=== PATIENT | female | born 1975 | race Caucasian/White ===

== ENCOUNTER 2020-09-25 10:06 | Inpatient (IN) ==
[2020-09-25 12:04] LABS: Basophils % 0.2 % (0.0-0.8); Eosinophils % 0.2 % (0.00-10.9); Hematocrit 37.7 VOL% (35.7-47.0); Hemoglobin 12.5 GM/DL (12.0-16.0); Immature Granulocytes % 0.4 %; Immature Granulocytes Absolute 0.02 #; Lymphocytes # 0.9 10*3/uL (1.4-4.0); Lymphocytes % 18.1 % (21.3-54.2); Mean Corpuscular HGB Conc 33.2 GM/DL (32-36); Mean Corpuscular Volume 93.5 FL (87-102); Monocytes % 5.9 % (1.7-12.7); Neutrophils % 75.2 % (38.7-73.9); Platelet Count 266 T/CUMM (130-400); Red Blood Count 4.03 MC/CUMM (3.8-5.5); Red Cell Distribution Width 12.9 % (9.3-17.3); White Blood Count 4.9 T/CUMM (4-12)
[2020-09-25] MEDS ORDERED: ONDANSETRON 4 MG/2 ML VIAL IV PRN (12:23)
[2020-09-25] MEDS ORDERED: GLUCAGON 1 MG VIAL IM PRN (12:23)
[2020-09-25] MEDS ORDERED: DEXTROSE 50% 25 GM/50 ML VIAL IV PRN (12:23)
[2020-09-25 12:26] LABS: Albumin 3.4 G/DL (3.4-5.0); Bilirubin,Total 0.6 MG/DL (0.20-1.00); Calcium 8.6 MG/DL (8.5-10.1); Ferritin 557.3 ng/ml (8-252); Osmolality,Calculated 277.5 MOS/KG (273-304); Potassium 4.1 MMOL/L (3.5-5.1); Total Protein 6.9 G/DL (6.4-8.2)
[2020-09-25 12:57] LABS: Lymphocytes 22 % (20-55); Segmented Neutrophils 70 % (50-85); Total Cells Counted 100
[2020-09-25 12:58] LABS: Platelet Estimate Adequate
[2020-09-25] MEDS ORDERED: REMDESIVIR 200 MG in SODIUM CHLORIDE 0.9% 210 ML IV ONE (14:00)
[2020-09-25] MEDS: SODIUM CHLORIDE 0.45% 1,000 ML IV SCH (18:54)
[2020-09-25] MEDS: CETIRIZINE 10 MG TABLET PO SCH (18:56)
[2020-09-25] MEDS: AZITHROMYCIN 250 MG TABLET PO SCH (18:56)
[2020-09-25] MEDS: FAMOTIDINE 20 MG TABLET PO SCH (21:56)
[2020-09-25] MEDS: ASCORBIC ACID 500 MG TABLET PO SCH (21:56)
[2020-09-25] MEDS: guaiFENesin/CODEINE 5 ML LIQUID PO PRN (21:56)
[2020-09-25] MEDS: BUDESONIDE/FORMOTEROL 160-4.5 INHALER 6 GM INH SCH (21:56)
[2020-09-25] MEDS: RIVAROXABAN 10 MG TABLET PO SCH (21:56)
[2020-09-25] MEDS: ACETAMINOPHEN 325 MG TABLET PO PRN (22:03)
[2020-09-26] MEDS: guaiFENesin/CODEINE 5 ML LIQUID PO PRN ×3 (03:20→22:17)
[2020-09-26] MEDS: SODIUM CHLORIDE 0.45% 1,000 ML IV SCH ×2 (05:28→22:19)
[2020-09-26 07:10] LABS: Basophils % 0.2 % (0.0-0.8); Eosinophils % 0.4 % (0.00-10.9); Hematocrit 32.6 VOL% (35.7-47.0); Hemoglobin 10.9 GM/DL (12.0-16.0); Immature Granulocytes % 0.7 %; Immature Granulocytes Absolute 0.03 #; Lymphocytes # 0.8 10*3/uL (1.4-4.0); Lymphocytes % 17.3 % (21.3-54.2); Mean Corpuscular HGB Conc 33.4 GM/DL (32-36); Mean Corpuscular Volume 94.5 FL (87-102); Mean Platelet Volume 10.1 FL (9.6-12.0); Monocytes % 7.6 % (1.7-12.7); Neutrophils % 73.8 % (38.7-73.9); Platelet Count 268 T/CUMM (130-400); Red Blood Count 3.45 MC/CUMM (3.8-5.5); White Blood Count 4.5 T/CUMM (4-12)
[2020-09-26 07:11] LABS: Albumin 2.6 G/DL (3.4-5.0); Bilirubin,Direct 0.14 MG/DL (0.0-0.20); Bilirubin,Indirect 0.6 MG/DL (0.0-1.0); Bilirubin,Total 0.7 MG/DL (0.20-1.00); Total Protein 6.2 G/DL (6.4-8.2)
[2020-09-26 07:13] LABS: Albumin 2.4 G/DL (3.4-5.0); Bilirubin,Total 0.7 MG/DL (0.20-1.00); Osmolality,Calculated 278.3 MOS/KG (273-304); Potassium 3.8 MMOL/L (3.5-5.1)
[2020-09-26 07:38] LABS: Ferritin 475.6 ng/ml (8-252)
[2020-09-26] MEDS ORDERED: REMDESIVIR 100 MG in SODIUM CHLORIDE 0.9% 100 ML IV SCH (09:00)
[2020-09-26] MEDS: CHOLECALCIFEROL 1,000 UNIT TABLET PO SCH (10:36)
[2020-09-26] MEDS: ASCORBIC ACID 500 MG TABLET PO SCH ×2 (10:36→22:16)
[2020-09-26] MEDS: CETIRIZINE 10 MG TABLET PO SCH (10:36)
[2020-09-26] MEDS: ZINC GLUCONATE 50 MG TABLET PO SCH (10:36)
[2020-09-26] MEDS: AZITHROMYCIN 250 MG TABLET PO SCH (10:37)
[2020-09-26] MEDS: BUDESONIDE/FORMOTEROL 160-4.5 INHALER 6 GM INH SCH ×2 (11:17→22:16)
[2020-09-26] MEDS: ACETAMINOPHEN 325 MG TABLET PO PRN (15:25)
[2020-09-26] MEDS: RIVAROXABAN 10 MG TABLET PO SCH (22:16)
[2020-09-26] MEDS: FAMOTIDINE 20 MG TABLET PO SCH (22:17)
[2020-09-27 05:48] LABS: Basophils % 0.4 % (0.0-0.8); Eosinophils % 0.2 % (0.00-10.9); Hematocrit 33.7 VOL% (35.7-47.0); Hemoglobin 10.7 GM/DL (12.0-16.0); Immature Granulocytes % 0.8 %; Immature Granulocytes Absolute 0.04 #; Lymphocytes % 19.4 % (21.3-54.2); Mean Corpuscular HGB Conc 31.8 GM/DL (32-36); Mean Corpuscular Volume 97.7 FL (87-102); Mean Platelet Volume 9.8 FL (9.6-12.0); Monocytes % 8.1 % (1.7-12.7); Neutrophils % 71.1 % (38.7-73.9); Platelet Count 347 T/CUMM (130-400); Red Blood Count 3.45 MC/CUMM (3.8-5.5); Red Cell Distribution Width 12.7 % (9.3-17.3); White Blood Count 5.1 T/CUMM (4-12)
[2020-09-27 06:07] LABS: Albumin 2.5 G/DL (3.4-5.0); Bilirubin,Direct 0.16 MG/DL (0.0-0.20); Bilirubin,Indirect 0.3 MG/DL (0.0-1.0); Bilirubin,Total 0.5 MG/DL (0.20-1.00); Total Protein 6.1 G/DL (6.4-8.2)
[2020-09-27 06:08] LABS: Albumin 2.5 G/DL (3.4-5.0); Bilirubin,Total 0.6 MG/DL (0.20-1.00); Calcium 8.3 MG/DL (8.5-10.1); Potassium 3.7 MMOL/L (3.5-5.1); Total Protein 6.3 G/DL (6.4-8.2)
[2020-09-27 06:25] LABS: Ferritin 516.1 ng/ml (8-252)
[2020-09-27] MEDS ORDERED: IVERMECTIN 3 MG TABLET PO SCH (09:00)
[2020-09-27] MEDS: AZITHROMYCIN 250 MG TABLET PO SCH (09:59)
[2020-09-27] MEDS: CHOLECALCIFEROL 1,000 UNIT TABLET PO SCH (10:00)
[2020-09-27] MEDS: CETIRIZINE 10 MG TABLET PO SCH (10:00)
[2020-09-27] MEDS: ZINC GLUCONATE 50 MG TABLET PO SCH (10:00)
[2020-09-27] MEDS: ASCORBIC ACID 500 MG TABLET PO SCH (10:01)
[2020-09-27] MEDS: BUDESONIDE/FORMOTEROL 160-4.5 INHALER 6 GM INH SCH (10:04)
[2020-09-27 11:40] VITALS: BP 120/79
[2020-09-27] MEDS: ACETAMINOPHEN 325 MG TABLET PO PRN (12:29)
== END 2020-09-27 14:50 | disposition home or self-care (01) | DRG 177 ==
LOC: N.ED 10:06 → SUATTDRO 12:23 → N.EDINP 12:23 → N.ADMINP 21:10 → N.2E 21:10 → UNDODISIN 09-27 14:50
PROVIDERS: ADMIT Hospitalist; ATTEND Phlebology